=== PATIENT | male | born 1955 | race Caucasian/White ===

== ENCOUNTER → 2019-04-11 | Outpatient (CLI) | payer MEDICARE, OTHER ==
--- NOTE | 2019-04-11 18:39 | Diagnostic Imaging Report ---
Examination: MRI SPINE CERVICAL WO CONTRAST History: Neck pain and headache. Comparison studies: None Technique: Sagittal T1, T2 and IR, axial T2 and axial gradient echo intravenous contrast: None Findings: Alignment: Normal lordosis. No scoliosis. Cervicomedullary junction: No abnormalities. Patent foramen magnum. Soft tissues: No T2 hyperintense inflammatory changes. Spinal cord: Normal in size and signal from the foramen magnum through T1. Vertebrae: No fractures, infection or neoplasm. Degenerative changes: C1-C2: No abnormalities. C2-C3: Tiny central disc protrusion. Mild bilateral facet arthropathy. No canal or foraminal stenosis. C3-C4: Diffuse disc osteophyte complex and bilateral uncovertebral and facet arthropathy result in severe bilateral neural foraminal narrowing and mild canal stenosis. C4-C5: Diffuse disc osteophyte complex and bilateral uncovertebral arthropathy result in severe bilateral neural foraminal narrowing and moderate canal stenosis. C5-C6: Asymmetric to the right disc osteophyte complex and bilateral uncovertebral arthropathy result in moderate bilateral neural foraminal narrowing and mild canal stenosis. C6-C7: Diffuse disc osteophyte complex and bilateral uncovertebral arthropathy result in mild bilateral neural foraminal narrowing. No canal stenosis. C7-T1: No abnormalities. IMPRESSION: Degenerative changes at C2-C3 to C6-C7 with moderate canal stenosis at C4-C5 and mild canal stenosis at C3-C4 and C5-C6. Severe bilateral neural foraminal narrowing at C3-C4 and C4-C5. Moderate bilateral foraminal narrowing at C5-C6. Signed by: Dr. Radha Kay M.D. on 04/11/2019 6:36 PM
== END ==
LOC: MRI 13:34
PROVIDERS: ATTEND Psychiatry & Neurology Clinical Neurophysiology
DX: M54.12 Radiculopathy, cervical region (principal)
CPT/HCPCS: 72141

== ENCOUNTER 2020-02-06 06:45 | Observation (INO) | payer MEDICARE, OTHER ==
[2020-02-03 15:23] LABS: BASOPHILS % 0.2 % (0.0-1.0); EOSINOPHILS # (AUTO) 0.1 (0.0-0.4); EOSINOPHILS % 2.2 % (0.0-6.0); HEMATOCRIT 40.5 % (38.2-49.6); HEMOGLOBIN 13.1 g/dL (14.0-18.0); LYMPHOCYTES # (AUTO) 1.5 (1.0-3.2); LYMPHOCYTES % 32.9 % (18.0-39.1); MEAN CORPUSCULAR HEMOGLOBIN 29.4 pg (28-32); MEAN CORPUSCULAR HGB CONC 32.3 g/dL (31-35); MONOCYTES # (AUTO) 0.3 (0.2-0.8); MONOCYTES % 7.6 % (4.4-11.3); NEUTROPHILS # (AUTO) 2.5 (2.1-6.9); NEUTROPHILS % 56.9 % (38.7-80.0); PLATELET COUNT 142 x10e3/uL (140-360); RED BLOOD COUNT 4.45 x10e6/uL (4.3-5.7); RED CELL DISTRIBUTION WIDTH 13.4 % (11.7-14.4)
[2020-02-03 15:37] LABS: PARTIAL THROMBOPLASTIN TIME 27.2 seconds (23.8-35.5)
[2020-02-03 15:59] LABS: CALCIUM 8.7 mg/dL (8.4-10.2); CREATININE, SERUM 1.28 mg/dL (0.72-1.25)
--- NOTE | 2020-02-03 16:05 | Diagnostic Imaging Report ---
Exam: CHEST 2 VIEWS Date: 02/03/2020 4:00 PM INDICATION: ^[id number] ^1520 ^PRE-OP Comparison: None FINDINGS: Lines/Tubes:None Lungs:The lungs are well inflated. No focal consolidation or pulmonary edema. Pleura:No pleural effusion. No pneumothorax. Heart/Mediastinum:The cardiomediastinal silhouette is normal in size and contour. Bones/Soft Tissues: No acute osseous abnormality. Moderate multilevel degenerative changes of the spine are noted. Upper abdomen: Unremarkable. IMPRESSION: Negative for acute intrathoracic process. Signed by: Diony Alvarado MD on 02/03/2020 4:02 PM
[2020-02-03 16:17] LABS: INR 0.87; PROTHROMBIN TIME 12.2 seconds (11.9-14.5)
[~2020-02-06] VITALS: Ht 172.7 cm; Wt 104.3 kg
[~2020-02-06 06:45] MED LIST: ATORVASTATIN CA20 MG PO; BACLOFEN10 MG PO; BUPIVACAINE 0.5%/EPI 30 ML SDV INJ ONE; IBUPROFEN600 MG PO; MONTELUKAST SOD10 MG PO; NORCO 10-325 T1 EACH PO; THROMBIN FOR SOLN 5,000 UNIT VIAL ONE; TOPIRAMATE100 MG PO; VANCOMYCIN HCL 1 GM VIAL ONE
[2020-02-06] MEDS ORDERED: IBUPROFEN 800MG/ 200ML 200 ML IV ONE (06:49)
[2020-02-06] MEDS ORDERED: LIDOCAINE HCL (LTA) 4 ML SOLN ONE (06:49)
[2020-02-06] MEDS ORDERED: CEFAZOLIN SOD 1 GM/NS 50ML 100 ML IV ONE (07:46)
[2020-02-06] MEDS ORDERED: PROMETHAZINE HCL (IM) 25 MG/ML VIAL IM PRN (10:45)
[2020-02-06] MEDS ORDERED: OXYCODONE/ACETAMINOPHEN 5-325 1 EACH TABLET PO PRN (10:45)
[2020-02-06] MEDS ORDERED: ACETAMINOPHEN 325 MG TAB PO PRN (10:45)
[2020-02-06] MEDS ORDERED: HYDROMORPHONE 2MG/ML 2 MG/ML ML IV PRN (10:45)
[2020-02-06] MEDS ORDERED: MORPHINE SULFATE 5 MG/ML VIAL IM PRN (10:45)
[2020-02-06] MEDS ORDERED: MAGNESIUM/ALUMINUM/SIMETHICONE 30 ML UDC PO PRN (10:45)
[2020-02-06] MEDS ORDERED: ONDANSETRON HCL INJ 2MG/ML 2ML 2 MG/ML VIAL IV PRN (10:45)
[2020-02-06] MEDS ORDERED: FENTANYL CITRATE/PF 100MCG/2 ML INJ ONE ×3 (11:16→14:40)
--- OUTSIDE RECORDS SUMMARY | 2020-02-06 12:47 | XMS REPORT | Continuity of Care Document ---
Author Author [facility] Address Unknown Phone Unavailable Care Team Providers Care Hide Handler Name Role Phone [employer] Information Exchange Unavailable Un available Problems Problem Status Onset Date Classification Date Reported Comments Source Hyperlipidemia Active 10/10/2013 [facility] Hypertension Active 03/28/2013 [facility] Acute Sinusitis Active 03/28/2013 [facility] Back Pain Active 03/28/2013 [facility] Male Erectile Disorder Active 10/10/2013 [facility] Infectious Gastroenteritis Act florentino 07/08/2013 [facility] Acute Upper Respiratory Infection Active 10/10/2013 [facility] Medications Medication Details Route Status Patient Instructions Ordering Provider Order Date Source Ciprofloxacin HCl 500 MG Oral Tablet ; Start Date: 07/08/2013; End Date: 07/15/2013 (Active) Active 07/08/2013 [facility] Diphenoxylate-Atropine 2.5-0.025 MG Oral Tablet ; Start Date: 07/08/2013; End Date: 07/11/2013 (Active) Active 07/08/2013 [facility] Levbid 0.375 MG Oral Tablet Extended Release 12 Hour ; Start Date: 07/08/2013; End Date: (Active) Active 07/08/2013 [facility] Atorvastatin Calcium 20 MG Oral Tablet ; Start Date: 07/08/2013; End Date: (Active) Active 07/08/2013 [facility] Hydrocodone-Acetaminophen 5-500 MG Oral Tablet ; Start Date: 05/24/2013 (Active) Active 05/24/2013 [facility] Viagra 100 MG Oral Tablet ; St art Date: 05/24/2013; End Date: (Active) Active 05/24/2013 [facility] Azithromycin 250 MG Oral Tablet ; Start Date: 03/07/2013; End Date: (Active) Active 03/07/2013 [facility] Metaxalone 800 MG Oral Tablet ; Start Date: ; End Date: (Active) Inactive [facility] Hydrocodone-Acetaminophen 5-500 MG CAPS (Active) Active [facility] Skelaxin 400 MG TABS (Active) Active [facility] Gabapentin 300 MG Oral Capsule (Active) Active [facility] ALPRAZolam 1 MG Oral Tablet ( Active) Active [facility] Metaxalone 800 MG Oral Tablet (Active) Active [facility] Allergies, Adverse Reactions, Alerts Substance Category Reaction Severity Reaction type Status Date Reported Comments Source No Known Drug Allergies drug a llergy drug aller gy Active [facility] Immunizations Immunization Date Given Site Status Last Updated Comments Source Fluzone Intramuscular Injectable 05/24/2013 completed [facility] Tdap 02/02/2012 completed [facility] Influenza 05/09/2008 completed [facility] Results No Data Provided for This Section Pathology Reports No Data Provided for This Section Diagnostic Reports No Data Provided for This Section Consultation Notes No Data Provided for This Section Discharge Summaries No Data Provided for This Section History and Physicals No Data Provided for This Section Vital Signs No Data Provided for This Section Encounters Location Location Details Encounter Type Encounter Number Reason For Visit Attending Provider ADM Date DC Date Status Source AUDIT [id number] 02/16/2013 02/16/2013 [facility] Pina FULTON francheska: HASEEB BANDA, Status: Pen, Time: 3:00 PM [id number] 02/20/20 13 02/16/2013 [facility] AUDIT [id number] 03/07/2013 03/07/2013 [facility] AUDIT [id number] 03/28/2013 03/28/2013 [facility] AUDIT [id number] 07/08/2013 07/08/2013 [facility] AUDIT [id number] 10/10/2013 10/10/2013 [facility] Procedures No Data Provided for This Section Assessment and Plan No Data Provided for This Section Plan of Care No Data Provided for This Section Social History Social History Date Source Marital History - (V61.03); (Active) 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 10/10/2013 [facility] Advance Directives Advance Dir ectives No Advance Directives available. 07/08/2013 [facility] Advance Directives Advance Dir ectives No Advance Directives available. 03/28/2013 [facility] Advance Directives Advance Dir ectives No Advance Directives available. 03/07/2013 [facility] Advance Directives Advance Dir ectives No Advance Directives available. 02/16/2013 [facility] Functional Status No Data Provided for This Section
--- NOTE | 2020-02-06 13:18 | NUR ---
Recvd patient from PACU. AAOX3, neck collar in place, not in any distress , assisted him to walk to restroom. keep monitoring
[2020-02-06 13:24] VITALS: BP 160/100
--- NOTE | 2020-02-06 13:39 | Operative Report ---
DATE OF PROCEDURE: 02/06/2020 SURGEON: Matt Brady MD PREOPERATIVE DIAGNOSIS: C3-4 and C4-C5 spondylosis with radiculopathy, M50.120. POSTOPERATIVE DIAGNOSIS: C3-4 and C4-C5 spondylosis with radiculopathy, M50.120. PROCEDURES: 1. C3-4 anterior cervical diskectomy and microsurgical osteophyte resection and allograft fusion, 26535. 2. C4-5 anterior cervical diskectomy and microsurgical osteophyte resection and allograft fusion, 15160. 3. Preparation of tricortical iliac crest allograft, 69289. 4. C3-C4-C5 anterior cervical plating with Synthes CSLP plate, 83053. ANESTHESIA: General. INDICATIONS: The patient is a 64-year-old man who presents with C3-4 and C4-5 spondylosis and upper cervical radiculopathy and headaches. He was taken to surgery for two-level anterior cervical decompression and fusion. PROCEDURE IN DETAIL: After induction of general anesthesia, the patient was placed on the operating table in supine position. The right side of neck was prepped and draped in sterile fashion. The fluoroscopic C-arm was positioned in cross-table lateral orientation. A small transverse incision was created right side of neck superimposed on the C4 vertebral body as determined by fluoroscopy. The platysma was divided in line with the incision. A subplatysmal dissection was carried out and avascular plane avascular plane of dissection was developed and was followed medial to the sternocleidomastoid muscle and was followed medial to the carotid sheath to the anterior border of the cervical spine. The deep cervical fascia was opened. The esophagus was retracted to the left. The attachments of longus colli muscles to the anterolateral aspects of vertebral bodies of C3, C4, and C5 were divided. The anterior longitudinal ligament was resected. Cammal posts were inserted into C3 and C5 and the Cammal distractor was used to distract both disk spaces simultaneously. The anterior annuli of the disks were incised with a #11 blade and the contents of both disks were thoroughly evacuated with curettes and pituitary instruments. The posterior osteophytes were meticulously drilled with a 2 mm cutting robert on a high-speed drill until they were completely removed. The posterior annulus of the disk, herniated disk material, and the posterior longitudinal ligament were resected layer by layer to the dura was fully exposed and decompressed. The medial aspects of the uncinate processes were resected bilaterally to further expose and decompress the origins of the corresponding nerve roots. After satisfactory decompression had been achieved, the endplates were prepared for fusion. Two pieces of tricortical iliac crest allograft were cut to the size and shapes of the disk spaces and were inserted to the disk spaces under distraction and fluoroscopic guidance. The distraction was released and distraction posts were removed. A Synthes CSLP variable type anterior cervical plate was selected and was affixed to the vertebral bodies of C3, C4, and C5 with three pairs of 14 x 4.35 mm screws. All screw holes were drilled and tapped on the lateral fluoroscopic guidance. All screws were locked with the appropriate locking screws. An excellent construct was obtained. The wound was copiously irrigated with bacitracin solution. Meticulous hemostasis was secured. The retractor was removed. The platysma was closed with 3-0 Vicryl sutures. The skin was closed with 4-0 Monocryl sutures in subcuticular fashion. Steri-Strips and dressing were applied. The patient was awakened, extubated, and taken to postanesthesia care unit in stable condition. No intraoperative complications were encountered. Estimated blood losswas 30 mL. Matt Brady MD PP/GINA /[id number]
[2020-02-06] MEDS: LACTATED RINGER'S 1,000 ML IV SCH ×2 (14:27→19:05)
[2020-02-06] MEDS: CARISOPRODOL 350 MG TAB PO PRN ×2 (14:28→20:35)
[2020-02-06] MEDS ORDERED: MIDAZOLAM HCL 2 MG/2 ML VIAL ONE (14:40)
[2020-02-06] MEDS ORDERED: ONDANSETRON HCL INJ 2MG/ML 2ML 2 MG/ML VIAL ONE (14:50)
[2020-02-06] MEDS ORDERED: DEXAMETHASONE SOD PHOS INJ 4 MG/ML VIAL ONE (14:50)
[2020-02-06] MEDS ORDERED: SEVOFLURANE INHAL SOLN 250 ML PEN BTL ONE (14:50)
[2020-02-06] MEDS ORDERED: GLYCOPYRROLATE INJ 0.2 MG/ML VIAL ONE (14:50)
[2020-02-06] MEDS ORDERED: NEOSTIGMINE 1 MG/ML 10ML VIAL ONE (14:50)
[2020-02-06] MEDS ORDERED: LIDOCAINE HCL 2% LOCAL INJ 5 ML SDV VIAL INJ ONE (14:50)
[2020-02-06] MEDS ORDERED: LIDOCAINE HCL 2% JELLY 5 ML TUBE ONE (14:50)
[2020-02-06] MEDS ORDERED: ROCURONIUM BROMIDE 10 MG/ML 5ML VIAL IV ONE (14:50)
[2020-02-06] MEDS ORDERED: PROPOFOL IV EMULSION 10 MG/ML 20 ML VIAL ONE (14:50)
[2020-02-06 15:10] VITALS: BP 160/100
[2020-02-06] MEDS: IBUPROFEN 600 MG TAB PO SCH ×2 (16:44→20:41)
[2020-02-06] MEDS: BACLOFEN 10 MG TAB PO SCH (16:44)
[2020-02-06] MEDS: HYDROCODONE/APAP 10MG-325MG TAB PO SCH (17:20)
[2020-02-06 17:24] VITALS: BP 153/93
[2020-02-06] MEDS: CEFAZOLIN SOD 1 GM/NS 50ML 50 ML IV SCH (18:06)
--- NOTE | 2020-02-06 19:00 | NUR ---
Resumed care of patient. Patient awake and resting in bed, dressing to anterior neck CDI, soft collar in place, no s/s of distress at this time. Bed locked and in lowest position, side rails upx3, call light placed within reach. Patient instructed to call for assistance if needed, verbalized understanding. All safety measures in place.
[2020-02-06 20:10] VITALS: BP 152/83
[2020-02-06] MEDS ORDERED: ATORVASTATIN 20 MG TAB PO SCH (21:00)
[2020-02-06] MEDS ORDERED: ZOLPIDEM TARTRATE 5 MG TAB PO PRN (21:00)
[2020-02-06] MEDS ORDERED: TOPIRAMATE 100 MG TAB PO SCH (21:00)
[2020-02-06 21:05] VITALS: BP 152/83
[2020-02-06] MEDS ORDERED: NORCO 7.5-3251 EACH PO (22:56)
[2020-02-06 23:54] VITALS: BP 118/64
[2020-02-07] MEDS: CEFAZOLIN SOD 1 GM/NS 50ML 50 ML IV SCH ×2 (02:12→08:11)
[2020-02-07] MEDS: CARISOPRODOL 350 MG TAB PO PRN (02:15)
[2020-02-07] MEDS: LACTATED RINGER'S 1,000 ML IV SCH (02:48)
[2020-02-07 05:34] VITALS: BP 119/81
--- NOTE | 2020-02-07 06:17 | NUR ---
Patient leaving unit via wheelchair for x-ray. In stable condition, no s/s of distress at this time.
--- NOTE | 2020-02-07 06:32 | NUR ---
Patient returned to unit from x-ray. In stable condition, no s/s of distress at this time. All safety measures in place.
[2020-02-07 08:00] VITALS: BP 128/83
[2020-02-07] MEDS: BACLOFEN 10 MG TAB PO SCH (08:10)
[2020-02-07] MEDS: IBUPROFEN 600 MG TAB PO SCH (08:10)
[2020-02-07 08:11] VITALS: BP 128/83
[2020-02-07] MEDS: HYDROCODONE/APAP 10MG-325MG TAB PO SCH (08:11)
[2020-02-07] MEDS ORDERED: MONTELUKAST SODIUM 10 MG TAB PO SCH (09:00)
--- NOTE | 2020-02-07 09:34 | NUR ---
Patient discharged home, Prescription and discharge instruction given, patient verbalized understanding. Surgical dressing changed, No signs of infection noted, no distress noted. IV canula removed with tip intact, no ss of infiltration, transported via wheelchair to [facility], is there to pick him.
--- NOTE | 2020-02-07 09:59 | Diagnostic Imaging Report ---
EXAMINATION: Cervical spine radiographs - 2 views. CLINICAL HISTORY: Status post surgery COMPARISON: Cervical spine MRI 04/11/2019 DISCUSSION: The cervical spine is visualized from the skull base to C6. Cervicothoracic junction is partially obscured on lateral view by overlying bones/soft tissues. Status post C3-C5 ACDF with intervertebral disc grafts. No evidence of hardware loosening or failure. No displaced fractures or acute osseous abnormality. Visualized cervical vertebral body heights are unchanged. Straightening of the cervical lordosis without significant spondylolisthesis. Moderate degenerative disc changes at C5-C6. Mild multilevel facet arthropathy. The soft tissues are unremarkable. Subtle fractures, ligamentous or soft tissue injuries cannot be excluded on the basis of this examination. IMPRESSION: 1. Status post C3-C5 ACDF without evidence of acute hardware complication. 2. Mild multilevel facet arthropathy and moderate degenerative disc changes at C5-C6. Signed by: Dr. Vance Salazar M.D. on 02/07/2020 9:56 AM
== END 2020-02-07 09:34 | disposition home or self-care (01) ==
LOC: OR 06:45 → PACU V 10:43 → MED/SURG 13:04
PROVIDERS: ADMIT Neurological Surgery; ATTEND Neurological Surgery
DX: M50.11 Cervical disc disorder with radiculopathy, high cervical region (principal); E78.5 Hyperlipidemia, unspecified; R12 Heartburn; Z87.891 Personal history of nicotine dependence; Z01.810 Encounter for preprocedural cardiovascular examination; Z01.812 Encounter for preprocedural laboratory examination; Z01.818 Encounter for other preprocedural examination; Z11.59 Encounter for screening for other viral diseases; M19.90 Unspecified osteoarthritis, unspecified site
CPT/HCPCS: 20931; 22551; 22552; 22845; 36415; 71046; 72040; 80048; 85025; 85610; 85730; 86850; 86900; 88304; 88311; 93005; C1713 ×4; C1763; G0378 ×2; J0690 ×2; J1100; J2001 ×2; J2250; J2405; J2704; J2710; J3010; J3370; J7121; U0002; 77003

== ENCOUNTER → 2020-03-05 | Outpatient (CLI) | payer MEDICARE ==
[~2020-03-05] MED LIST changes: -BUPIVACAINE 0.5%/EPI 30 ML SDV INJ ONE; +NORCO 7.5-3251 EACH PO; -THROMBIN FOR SOLN 5,000 UNIT VIAL ONE; -VANCOMYCIN HCL 1 GM VIAL ONE
--- NOTE | 2020-03-05 15:21 | Diagnostic Imaging Report ---
Cervical spine, 4 views including extension and flexion INDICATION: ^[id number] ^1400 ^EVALUATE FUSION STATUS Comparison: X-ray dated 02/07/2020. Discussion: Reinitiation of anterior cervical fusion changes from C3 through C5. Stable hardware alignment and appearance without evidence for acute no function. Negative for malalignment of the cervical spine. No changes in alignment on flexion or extension views. Moderate degenerative changes noted at C5-6. Prevertebral soft tissues are unremarkable. Partially visualized surrounding osseous structures and cervical soft tissues are unremarkable. IMPRESSION: Stable postoperative changes from anterior cervical fusion from C3 through C5. Flexion-extension views are negative for malalignment. No evidence of hardware malfunction. Signed by: Diony Alvarado MD on 03/05/2020 3:17 PM
== END ==
LOC: RAD 13:55
PROVIDERS: ATTEND Neurological Surgery
DX: M50.20 Other cervical disc displacement, unspecified cervical region (principal); M43.22 Fusion of spine, cervical region
CPT/HCPCS: 72050

== ENCOUNTER → 2022-11-18 | Outpatient (CLI) | payer MEDICARE | LOC: MRI 09:45 | PROVIDERS: ATTEND Physician Assistant | DX: G43.919 Migraine, unspecified, intractable, without status migrainosus (principal); M54.12 Radiculopathy, cervical region; M48.02 Spinal stenosis, cervical region | CPT/HCPCS: 70551; 72141 ==